=== PATIENT | female | born 1950 | race Caucasian/White ===

== ENCOUNTER → 2023-09-19 13:02 | Outpatient (REF) | payer MEDICARE, SELFPAY | LOC: RAD 13:02 | PROVIDERS: ATTENDING PHYSICIAN Urology; FAMILY PHYSICIAN Internal Medicine Geriatric Medicine | DX: N39.3 Stress incontinence (female) (male) (principal); R33.9 Retention of urine, unspecified; R30.0 Dysuria; N95.8 Other specified menopausal and perimenopausal disorders; N39.41 Urge incontinence | CPT/HCPCS: 76770 ==

== ENCOUNTER → 2024-07-28 14:05 | Outpatient (REF) | payer MEDICARE, SELFPAY | LOC: WDC 14:05 | PROVIDERS: ATTENDING PHYSICIAN Internal Medicine Geriatric Medicine | DX: Z12.31 Encounter for screening mammogram for malignant neoplasm of breast (principal) | CPT/HCPCS: 77063; 77067 ==